=== PATIENT | female | born 1940 | race Caucasian/White ===

== ENCOUNTER 2018-04-08 13:01 | Inpatient (IN) ==
[2018-04-08 17:00] LABS: Baso # (Auto) 0.1 th/mm3 (0.0-0.2); Baso % (Auto) 0.7 % (0.0-2.0); Eos # (Auto) 0.1 th/mm3 (0.0-0.4); Eos % (Auto) 0.7 % (0.0-4.0); Lymph # (Auto) 2.8 th/mm3 (1.0-4.8); Lymph % (Auto) 18.4 % (9.0-44.0); Mean Corpuscular HGB Conc 33.3 % (32.0-36.0); Mean Corpuscular Hemoglobin 32.7 pg (27.0-34.0); Mean Corpuscular Volume 98.1 fL (80.0-100.0); Mean Platelet Volume 8.4 fL (7.0-11.0); Mono # (Auto) 0.9 th/mm3 (0.0-0.9); Mono % (Auto) 5.6 % (0.0-8.0); Neut # (Auto) 11.4 th/mm3 (1.8-7.7); Neut % (Auto) 74.6 % (16.0-70.0); Platelet Count 632 th/mm3 (150-450); Red Blood Count 2.09 mil/mm3 (4.00-5.30); Red Cell Distribution Width 17.2 % (11.6-17.2); White Blood Count 15.3 th/mm3 (4.0-11.0)
[2018-04-08 17:06] LABS: Prothrombin Time 20.7 sec (9.8-11.6)
--- NOTE | 2018-04-08 17:12 | ED ---
HPI General Chief complaint: Weakness Stated complaint: Weakness Time Seen by Provider: 04/08/18 15:55 Source: patient, family and EMS Mode of arrival: EMS Limitations: no limitations History of Present Illness HPI Narrative: 77 year old female with a past medical history of ovarian carcinosarcoma (diagnosed 08/07) and hypertension presents to the ED for evaluation of weakness and urinary symptoms. Patient states that over the last 4 days she has become very easily fatigued to the point where she cannot walk 10 steps without needing to lie down. She also reports that she feels the urge to urinate more frequently than normal and that sometimes when she urinates it is painful. She reports some shortness of breath with exertion. She denies any abdominal pain but reports a dark black stool 3 days ago. She denies fevers , numbness/tingling, nausea or vomiting. She had two debulking surgeries for her ovarian cancer and finished her last round of chemotherapy in January 2018. According to her doctor in [facility] her cancer was stable in January 2018. Related Data Home Medications Medication Instructions Recorded Confirmed carvedilol 6.25 mg PO BID 04/08/18 04/08/18 rivaroxaban [Xarelto] 20 mg PO DAILY 04/08/18 04/08/18 Allergies Allergy/AdvReac Type Severity Reaction Status Date / Time No Known Allergies Allergy Verified 04/08/18 16:02 Review of Systems ROS: all other systems reviewed are negative [facility] Medical History Medical History Ovarian carcinosarcoma (Acute) Surgical History Surgical History H/O abdominal surgery (Acute) Social History Social History Substance History: No History of Abuse Second Hand Smoke Exposure: No Smoking Status: Never smoker How Often Do You Have a Drink Containing Alcohol: Never Recent Travel in [facility] within the Last 8 Weeks: No Recent Out of Country Travel within the Last 8 Weeks: No Immunization History Tetanus Immunization: >5 Years Exam Narrative Exam Narrative: GENERAL: Well-appearing in no distress. SKIN: Focused skin assessment warm/dry. HEAD: Atraumatic. Normocephalic. EYES: Pupils equal and round. No scleral icterus. No injection or drainage. ENT: No nasal bleeding or discharge. Mucous membranes pink and moist. Tongue is midline. No uvuladeviation. NECK: Trachea midline. No JVD. CARDIOVASCULAR: Regular rate and rhythm. No murmur appreciated. RESPIRATORY: No accessory muscle use. Clear to auscultation. Breath sounds equal bilaterally. GASTROINTESTINAL: Abdomen soft, non-tender, nondistended. Hepatic and splenic margins not palpable. MUSCULOSKELETAL: No obvious deformities. No clubbing. No cyanosis. No edema. Full range of motion of the upper and lower extremities bilaterally. 2+ pulses bilaterally. NEUROLOGICAL: Awake and alert. No obvious cranial nerve deficits. Motor grossly within normal limits. Normal speech. PSYCHIATRIC: Appropriate mood and affect; insight and judgment normal. Course Initial Documented Vital Signs Temperature 98.3 F 04/08/18 13:14 Pulse Rate 106 H 04/08/18 13:14 Respiratory Rate 18 04/08/18 13:14 Blood Pressure 116/56 L 04/08/18 13:14 Pulse Oximetry 95 04/08/18 13:14 Last Documented Vital Signs Temperature 98.3 F 04/08/18 13:14 Pulse Rate 105 H 04/08/18 19:45 Respiratory Rate 20 04/08/18 19:45 Blood Pressure 142/70 H 04/08/18 19:45 Pulse Oximetry 100 04/08/18 19:45 Medical Decision Making EMILEE Attestation EMILEE supervised visit: Yes Attestation: I, Dr. Guadalupe, have reviewed the advance practice practitioner's documentation and am in agreement, met with the patient face to face, made the diagnosis, and the medical decision making was done by me. See his note for further details. This is a 77-year-old female from [facility] visiting one of her friends with history of recurrent ovarian cancer, with several surgical resections, last chemotherapy in January 2018, here for evaluation of generalized weakness, dyspnea, dyspnea on exertion. Patient presents tachycardic with an O2 sat of 95 % on room air. No hemoptysis. She has been anemic in the past and last required a transfusion in December 2017. On exam she is awake and alert and is very pleasant. She does not appear to be in any distress. Stool is heme- negative and brown. H&H is 6.8/20.5. Patient was consented for blood transfusion by me and will be given 2 units of PRBCs for symptomatic anemia. CT pulmonary angiogram will also be performed to rule out a PE. Either way the patient will be admitted for further treatment and evaluation of symptomatic anemia MDM Narrative Medical decision making narrative: 77-year-old female that presents to the ED for evaluation of weakness. Patient was properly examined and was found to have signs and symptoms consistent with appears to be weakness. Unclear etiology. Labs and imagings were ordered. Labs and imaging show what appears to be metastatic disease with symptomatic anemia. This time recognitions for admission for blood transfusion and further evaluation. Patient agrees with this plan. Case discussed with my attending agrees with this. Dr. Davis agrees to admission to her service. 2 units of blood were ordered by me. Patient was also found to have UTI and was started on Rocephin. Medical Screen Exam Complete: Yes Emergency Medical Condition: Yes Differential Diagnosis Differential Diagnosis: UTI versus symptomatic anemia versus PE versus chest pain versus a typical chest pain versus dyspnea versus weakness Medical Records Medical records reviewed: Yes I reviewed the patient's medical records. Lab Data Lab results reviewed: Yes I reviewed the patient's lab results. Result diagrams: 04/08/18 16:29 04/08/18 16:29 Lab Results 04/08/18 04/08/18 04/08/18 Range/Units 16:29 16:29 16:29 WBC 15.3 H (4.0-11.0) th/mm3 RBC 2.09 L (4.00-5.30) mil/mm3 Hgb 6.8 L* (11.6-15.3) gm/dL Hct 20.5 L* (35.0-46.0) % MCV 98.1 (80.0-100.0) fL MCH 32.7 (27.0-34.0) pg MCHC 33.3 (32.0-36.0) % RDW 17.2 (11.6-17.2) % Plt Count 632 H (150-450) th/mm3 MPV 8.4 (7.0-11.0) fL Prelim Diff (Auto) [employer] Neut % (Auto) 74.6 H (16.0-70.0) % Lymph % (Auto) 18.4 (9.0-44.0) % Fisher % (Auto) 5.6 (0.0-8.0) % Eos % (Auto) 0.7 (0.0-4.0) % Baso % (Auto) 0.7 (0.0-2.0) % Neut # (Auto) 11.4 H (1.8-7.7) th/mm3 Lymph # (Auto) 2.8 (1.0-4.8) th/mm3 Fisher # (Auto) 0.9 (0.0-0.9) th/mm3 Eos # (Auto) 0.1 (0.0-0.4) th/mm3 Baso # (Auto) 0.1 (0.0-0.2) th/mm3 WBC Differential . Differential Comment Auto diff final PT 20.7 H (9.8-11.6) sec INR 2.0 Ratio Sodium 141 (136-145) meq/L Potassium 4.8 (3.5-5.1) meq/L Chloride 109 H (98-107) meq/L Carbon Dioxide 24.3 (21.0-32.0) meq/L Anion Gap 8 (5-15) meq/L BUN 45 H (7-18) mg/dL Creatinine 1.31 H (0.50-1.00) mg/dL Estimated GFR 39 L (>89) mL/min Random Glucose 115 H (74-106) mg/dL Calcium 8.3 L (8.5-10.1) mg/dL Magnesium 1.7 (1.5-2.5) mg/dL Total Bilirubin 0.2 (0.2-1.0) mg/dL AST 47 H (15-37) U/L ALT 18 (10-53) U/L Alkaline Phosphatase 318 H (45-117) U/L Troponin I Less than 0.02 L (0.02-0.05) ng/mL B-Natriuretic Peptide (0-100) pg/mL Total Protein 7.5 (6.4-8.2) g/dL Albumin 2.8 L (3.4-5.0) g/dL TSH 0.789 (0.358-3.740) uIU/mL Urine Color (Yellw/Straw) Urine Clarity (Clear) Urine pH (5.0-8.5) Ur Specific Welling (1.002-1.035) Urine Protein (Neg-Trace) mg/dL Urine Glucose (UA) (Negative) mg/dL Urine Ketones (Negative) mg/dL Urine Occult Blood (Negative) Urine Nitrate (Negative) Urine Bilirubin (Negative) Urine Urobilinogen (Less than 2) mg/dL Ur Leukocyte Esterase (Negative) Urine RBC (0-3) /hpf Urine WBC (0-5) /hpf Ur Squamous Epith Cells (0-5) /hpf Urine Bacteria (None) /hpf Urine Yeast (None) /hpf Micro UA Comment Ur Microscopic Review Urine Culture Comments Blood Type Blood Type Recheck Antibody Screen MTS Gel Crossmatch 04/08/18 04/08/18 04/08/18 Range/Units 16:29 17:23 17:28 WBC (4.0-11.0) th/mm3 RBC (4.00-5.30) mil/mm3 Hgb (11.6-15.3) gm/dL Hct (35.0-46.0) % MCV (80.0-100.0) fL MCH (27.0-34.0) pg MCHC (32.0-36.0) % RDW (11.6-17.2) % Plt Count (150-450) th/mm3 MPV (7.0-11.0) fL Prelim Diff (Auto) Neut % (Auto) (16.0-70.0) % Lymph % (Auto) (9.0-44.0) % Fisher % (Auto) (0.0-8.0) % Eos % (Auto) (0.0-4.0) % Baso % (Auto) (0.0-2.0) % Neut # (Auto) (1.8-7.7) th/mm3 Lymph # (Auto) (1.0-4.8) th/mm3 Fisher # (Auto) (0.0-0.9) th/mm3 Eos # (Auto) (0.0-0.4) th/mm3 Baso # (Auto) (0.0-0.2) th/mm3 WBC Differential Differential Comment PT (9.8-11.6) sec INR Ratio Sodium (136-145) meq/L Potassium (3.5-5.1) meq/L Chloride (98-107) meq/L Carbon Dioxide (21.0-32.0) meq/L Anion Gap (5-15) meq/L BUN (7-18) mg/dL Creatinine (0.50-1.00) mg/dL Estimated GFR (>89) mL/min Random Glucose (74-106) mg/dL Calcium (8.5-10.1) mg/dL Magnesium (1.5-2.5) mg/dL Total Bilirubin (0.2-1.0) mg/dL AST (15-37) U/L ALT (10-53) U/L Alkaline Phosphatase (45-117) U/L Troponin I (0.02-0.05) ng/mL B-Natriuretic Peptide 20 (0-100) pg/mL Total Protein (6.4-8.2) g/dL Albumin (3.4-5.0) g/dL TSH (0.358-3.740) uIU/mL Urine Color Yellow (Yellw/Straw) Urine Clarity Hazy H (Clear) Urine pH 6.0 (5.0-8.5) Ur Specific Welling 1.016 (1.002-1.035) Urine Protein Negative (Neg-Trace) mg/dL Urine Glucose (UA) Negative (Negative) mg/dL Urine Ketones Negative (Negative) mg/dL Urine Occult Blood Small H (Negative) Urine Nitrate Negative (Negative) Urine Bilirubin Negative (Negative) Urine Urobilinogen Less than 2 (Less than 2) mg/dL Ur Leukocyte Esterase Large H (Negative) Urine RBC 5 H (0-3) /hpf Urine WBC 116 H (0-5) /hpf Ur Squamous Epith Cells 2 (0-5) /hpf Urine Bacteria Moderate H (None) /hpf Urine Yeast Few H (None) /hpf Micro UA Comment Culture indicated Ur Microscopic Review Not Reportable Urine Culture Comments Culture indicated Blood Type A Positive Blood Type Recheck Required Antibody Screen Negative MTS Gel Crossmatch See Detail Imaging Data Attestation: I personally reviewed and interpreted this imaging study as follows : Radiologist's impression: Chest X-Ray 04/08/18 16:19 CONCLUSION: No acute cardiopulmonary disease. Chest CTA 04/08/18 19:08 CONCLUSION: 1. No pulmonary embolus. 2. Multiple hepatic masses likely from metastatic disease. 3. Suspected anterior abdominal wall hernia with bowel seen anterior to the anterior abdominal wall the upper abdomen. ECG Data Attestation: I personally reviewed and interpreted this ECG as follows: Interpretation: EKG shows sinus rhythm with no sign of acute ischemia or arrhythmia read by me and attending. Discharge Plan Discharge Disposition Patient Disposition: ED Admit(ED Internal Use Only) Discharge Details Diagnosis: Symptomatic anemia, Acute UTI, Weakness Physicians Team ED Provider: Levar Guadalupe ED Midlevel Provider: Lorenzo Cruz Primary Care Provider: UNKNOWN, Rxs /Orders / Referrals /Forms Prescriptions: No Action carvedilol 6.25 mg Tablet 6.25 mg PO BID RF: 0 rivaroxaban [Xarelto] 20 mg Tablet 20 mg PO DAILY RF: 0 Status ED Status: Admitted Patient
[2018-04-08 17:13] LABS: Hemoglobin 6.8 gm/dL (11.6-15.3)
[2018-04-08 17:14] LABS: Hematocrit 20.5 % (35.0-46.0)
[2018-04-08 17:22] LABS: Alkaline Phosphatase 318 U/L (45-117); Thyroid Stimulating Hormone 0.789 uIU/mL (0.358-3.740); Total Protein 7.5 g/dL (6.4-8.2)
[2018-04-08 17:25] LABS: Alanine Aminotransferase 18 U/L (10-53); Albumin 2.8 g/dL (3.4-5.0); Anion Gap 8 meq/L (5-15); Blood Urea Nitrogen 45 mg/dL (7-18); Calcium 8.3 mg/dL (8.5-10.1); Carbon Dioxide 24.3 meq/L (21.0-32.0); Chloride 109 meq/L (98-107); Glomerular Filtration Rate 39 mL/min (>89); Glucose,Random 115 mg/dL (74-106); Magnesium 1.7 mg/dL (1.5-2.5); Sodium 141 meq/L (136-145)
--- NOTE | 2018-04-08 17:27 | XR ---
EXAM DATE: 04/08/2018 5:18 PM EST AGE/SEX: 77 years / Female INDICATIONS: Shortness of breath. CLINICAL DATA: This is the patient's initial encounter. Patient reports that signs and symptoms have been present for 1 day and indicates a pain score of 0/10. MEDICAL/SURGICAL HISTORY: None. None. COMPARISON: No prior exams available for comparison. FINDINGS: The lungs are clear without infiltrate, nodule, or mass. There is no appreciable pleural e ffusion for technique. Heart and mediastinum are unremarkable. Right subclavian [id number] is pre sent with tip overlapping the expected region of the SVC. CONCLUSION: No acute cardiopulmonary disease. Electronically signed by: Pacheco Lacy MD Board Certified Radiologist 04/08/2018 5:25 PM EST
[2018-04-08 17:32] LABS: Aspartate Aminotransferase 47 U/L (15-37); Potassium 4.8 meq/L (3.5-5.1)
[2018-04-08] MEDS ORDERED: Sodium Chlor 0.9% Inj 250 ML IV.SIG SCH (18:00)
[2018-04-08 19:26] LABS: Bacteria,Urine Moderate /hpf; Bilirubin,Urine Negative (Negative); Clarity,Urine Hazy (Clear); Color,Urine Yellow (Yellw/Straw); Glucose,Urine (UA) Negative (Negative); Leukocyte Esterase,Urine Large (Negative); Nitrite,Urine Negative (Negative); Specific Gravity,Urine 1.016 (1.002-1.035); Squamous Epithelial Cell,Urine 2 /hpf (0-5)
--- NOTE | 2018-04-08 19:38 | CT ---
EXAM DATE: 04/08/2018 7:32 PM EST AGE/SEX: 77 years / Female INDICATIONS: Short of breath. Weakness. CLINICAL DATA: This is the patient's initial encounter. Patient reports that signs and symptoms have been present for 1 day and indicates a pain score of 0/10. MEDICAL/SURGICAL HISTORY: Carcinoma, ovarian. . Abdominal surgery. RADIATION DOSE: 13.04 CTDI (mGy) COMPARISON: No prior exams available for comparison. TECHNIQUE: Volumetric scanning was performed using a multi-row detector CT scanner during bolus infu dorian of 48 ml Visipaque 320 (iodixanol) nonionic water-soluble contrast as a single exam dose. The d chu was post processed with a variety of visualization algorithms including full volume maximum inten sity projection and sliding thin slab reformation. Using automated exposure control and adjustment of the mA and/or kV according to patient size, radiation dose was kept as low as reasonably achievable to obtain optimal diagnostic quality images. DICOM format image data is available electronically for review and comparison. FINDINGS: Pulmonary Arteries: No filling defects are seen in the pulmonary arteries out to the subsegmental ve ssels. The left and right pulmonary arteries are normal in diameter. Lung: No infiltrates seen. Effusion: None. Mediastinum: No evidence of mediastinal or hilar adenopathy. There is a mild pericardial effusion. Other: The axilla is unremarkable. There appears to be a hernia seen in the upper abdomen with bowel seen anterior to the anterior abdominal wall in the upper abdomen. There are masses seen in the live r. CONCLUSION: 1. No pulmonary embolus. 2. Multiple hepatic masses likely from metastatic disease. 3. Suspected anterior abdominal wall hernia with bowel seen anterior to the anterior abdominal wall the upper abdomen. Electronically signed by: Heron Duncan MD Board Certified Radiologist 04/08/2018 7:37 PM EST
[2018-04-08] MEDS ORDERED: Acetaminophen 325 MG Tablet PO PRN (19:55)
[2018-04-08] MEDS ORDERED: Bisacodyl 10 MG Supp RECTAL PRN (19:55)
--- NOTE | 2018-04-08 19:58 | P.HPIM ---
History of Present Illness Primary Care Physician: UNKNOWN History of Present Illness: This is a 77-year-old [place] female with a PMH of Ovarian CA who presented to the ER w/ c/o weakness/fatigue and dysuria x4 days. Pt visiting friends from [facility], plans to return home in 2wks. States she's been following w/ Oncologists back home, initially diagnosed 07/2015, s/p debulking and chemo w/ recurrence in 07/2016, s/p debulking and chemo again until 01/2018, was found to have stable disease and given clearance to come to the [place] ([place]cologist's note in chart). Now w/ ongoing fatigue and dysuria. Denies fever or chills. On arrival, BP 116/56, HR 106, O2 sat 95% on RA, Afebrile. Hemoglobin 6.8. WBC 15.3. INR 2.0. Creatinine 1.31, no previous labs for comparison. Troponin negative. UA positive for UTI. S/p Rocephin, 2u pRBC ordered in ER, pending transfusion. Hemoccult negative. CXR negative. CTA Chest negative for PE, multiple hepatic masses likely from metastatic disease, anterior abdominal wall hernia. Per pt, liver mets new, however states she had previous "part of liver removed" and was told she had progression "to the right side and deep inside". Diagnosis (1) UTI (urinary tract infection): (2) Ovarian ca: (3) Symptomatic anemia: Review of Systems PAST FAMILY HISTORY: Reviewed. No h/o DM or CAD Review of Systems: all other systems reviewed are negative [facility] Medical History Medical History Ovarian carcinosarcoma (Acute) Surgical History Surgical History H/O abdominal surgery (Acute) Social History Social History Substance History: No History of Abuse Second Hand Smoke Exposure: No Smoking Status: Never smoker How Often Do You Have a Drink Containing Alcohol: Never Recent Travel in [place] within the Last 8 Weeks: No Recent Out of Country Travel within the Last 8 Weeks: No Immunization History Tetanus Immunization: >5 Years Medications and Allergies Allergies Allergy/AdvReac Type Severity Reaction Status Date / Time No Known Allergies Allergy Verified 04/08/18 16:02 Home Medications Medication Instructions Recorded Confirmed Type carvedilol 6.25 mg PO BID 04/08/18 04/08/18 History rivaroxaban [Xarelto] 20 mg PO DAILY 04/08/18 04/08/18 History Active Medications: Active Medications Bisacodyl (Dulcolax Supp) 10 mg RECTAL DAILY PRN PRN Reason: SEVERE CONSITIPATION Sodium Chloride (Ns Inj) 250 mls @ 15 mls/hr IV.SIG ONCE JESSICA Stop: 04/09/18 10:39 Last Admin: 04/08/18 18:29 Dose: 15 mls/hr Ceftriaxone Sodium 1,000 mg/ (Sodium Chloride) 100 mls @ 200 mls/hr IV.SIG ONCE ONE Stop: 04/08/18 20:23 Physical Exam Vital signs: Vital Signs 04/08/18 13:14 04/08/18 16:19 04/08/18 19:45 Temperature 98.3 F Pulse Rate 106 H 103 H 105 H Respiratory Rate 18 20 Blood Pressure 116/56 L 142/70 H Pulse Oximetry 95 97 100 Intake & Output 04/08/18 04/08/18 04/09/18 06:59 18:59 06:59 Weight 58 kg Narrative: PE: GENERAL: Very pleasant middle-aged female in no acute distress. SKIN: Focused skin assessment warm and dry. HEENT: PERRLA, EOMI. No scleral icterus or conjunctival pallor. No lid lag or facial droop. CARDIOVASCULAR: Regular rate and rhythm. No obvious murmurs to auscultation. No chest tenderness to palpation. RESPIRATORY: No obvious rhonchi or wheezing. Clear to auscultation. Breath sounds equal bilaterally. GASTROINTESTINAL: Abdomen soft, non-tender, nondistended. BS normal. MUSCULOSKELETAL: Extremities without clubbing, cyanosis, or edema. No obvious deformities. NEUROLOGICAL: Awake, alert and oriented x4. No focal neurologic deficits. Moving both upper and lower extremities spontaneously. PSYCHIATRIC: Appropriate mood and affect. Insight and judgment normal. Results Labs CBC & Chem 7: 04/08/18 16:29 04/08/18 16:29 Imaging Impressions Chest X-Ray 04/08/18 16:19 CONCLUSION: No acute cardiopulmonary disease. Chest CTA 04/08/18 19:08 CONCLUSION: 1. No pulmonary embolus. 2. Multiple hepatic masses likely from metastatic disease. 3. Suspected anterior abdominal wall hernia with bowel seen anterior to the anterior abdominal wall the upper abdomen. Caprini VTE Risk Assessment Caprini VTE Risk Assessment: No/Low Risk (score <= 1) Caprini Risk Assessment Model: Point Value = 1 Point Value = 2 Point Value = 3 Point Value = 5 Age 41-60 Minor surgery BMI > 25 kg/m2 Swollen legs Varicose veins or History of unexplained or recurrent spontaneous Oral contraceptives or hormone replacement Sepsis (< 1 month) Serious lung disease, including pneumonia (< 1 month) Abnormal pulmonary function Acute myocardial infarction Congestive heart failure (< 1 month) History of inflammatory bowel disease Medical patient at bed rest Age 61-74 Arthroscopic surgery Major open surgery (> 45 min) Laparoscopic surgery (> 45 min) Malignancy Confined to bed (> 72 hours) Immobilizing plaster cast Central venous access Age >= 75 History of VTE Family history of VTE Factor V Leiden Prothrombin [id number] Lupus anticoagulant Anticardiolipin antibodies Elevated serum homocysteine Heparin-induced thrombocytopenia Other congenital or acquired thrombophilia Stroke (< 1 month) Elective arthroplasty Hip, pelvis, or leg fracture Acute spinal cord injury (< 1 month) Prophylaxis Regimen: Total Risk Factor Score Risk Level Prophylaxis Regimen 0-1 Low Early ambulation 2 Moderate Order ONE of the following: *Sequential Compression Device (SCD) *Heparin 5000 units SQ BID 3-4 Higher Order ONE of the following medications: *Heparin 5000 units SQ TID *Enoxaparin/Lovenox 40 mg SQ daily (WT < 150 kg, CrCl > 30 mL/min) *Enoxaparin/Lovenox 30 mg SQ daily (WT < 150 kg, CrCl > 10-29 mL/min) *Enoxaparin/Lovenox 30 mg SQ BID (WT < 150 kg, CrCl > 30 mL/min) AND/OR *Sequential Compression Device (SCD) 5 or more Highest Order ONE of the following medications: *Heparin 5000 units SQ TID (Preferred with Epidurals) *Enoxaparin/Lovenox 40 mg SQ daily (WT < 150 kg, CrCl > 30 mL/min) *Enoxaparin/Lovenox 30 mg SQ daily (WT < 150 kg, CrCl > 10-29 mL/min) *Enoxaparin/Lovenox 30 mg SQ BID (WT < 150 kg, CrCl > 30 mL/min) AND *Sequential Compression Device (SCD) Assessment and Plan (1) UTI (urinary tract infection): Code(s): N39.0 - Urinary tract infection, site not specified Status: Acute (2) Ovarian ca: Code(s): C56.9 - Malignant neoplasm of unspecified ovary Status: Acute (3) Symptomatic anemia: Code(s): D64.9 - Anemia, unspecified Status: Acute Plan A/P: 1. Symptomatic Anemia: c/o fatigue/weakness x4 days, Hgb 6.8, Hemoccult negative. 2u pRBC ordered in ER, pending transfusion. On Xarelto for several years, unclear reason why, possibly due to underlying CA, denies h/o DVT/PE. Will continue Xarelto as hemoccult negative. Repeat Hgb after transfusion. 2. UTI: U/a w/ UTI, s/p Rocephin in ER, will continue w/ IV Abx, IVF for hydration, follow up urine cultures. 3. Ovarian CA: follows w/ Oncologist in [facility] where she lives, plans to re-start Chemo in April when she returns, CTA Chest w/ liver mets, unclear if new or old. 4. DVT Prophylaxis: SCD/Teds 5. Social work for d/c planning as needed 6. Case discussed w/ ER physician at length, labs/records/imaging reviewed by me.
[2018-04-08] MEDS ORDERED: Sod Chloride 0.9% Inj 1,000 ML IV.CONT SCH (20:00)
[2018-04-08] MEDS: Carvedilol 6.25 MG Tablet PO SCH (21:39)
[2018-04-08] MEDS: Senna/Docusate Sodium 8.6/50 MG Tablet PO SCH (21:39)
[2018-04-09 06:09] LABS: Baso # (Auto) 0.1 th/mm3 (0.0-0.2); Baso % (Auto) 0.9 % (0.0-2.0); Eos # (Auto) 0.2 th/mm3 (0.0-0.4); Hematocrit 26.8 % (35.0-46.0); Hemoglobin 9.1 gm/dL (11.6-15.3); Lymph # (Auto) 3.2 th/mm3 (1.0-4.8); Lymph % (Auto) 25.8 % (9.0-44.0); Mean Corpuscular Hemoglobin 30.3 pg (27.0-34.0); Mean Corpuscular Volume 89.1 fL (80.0-100.0); Mean Platelet Volume 8.5 fL (7.0-11.0); Mono % (Auto) 8.4 % (0.0-8.0); Neut # (Auto) 7.7 th/mm3 (1.8-7.7); Neut % (Auto) 62.9 % (16.0-70.0); Platelet Count 479 th/mm3 (150-450); Red Blood Count 3.01 mil/mm3 (4.00-5.30); Red Cell Distribution Width 18.3 % (11.6-17.2); White Blood Count 12.3 th/mm3 (4.0-11.0)
[2018-04-09 07:14] LABS: Alanine Aminotransferase 14 U/L (10-53); Albumin 2.6 g/dL (3.4-5.0); Alkaline Phosphatase 250 U/L (45-117); Anion Gap 8 meq/L (5-15); Aspartate Aminotransferase 29 U/L (15-37); Blood Urea Nitrogen 51 mg/dL (7-18); Carbon Dioxide 24.7 meq/L (21.0-32.0); Chloride 110 meq/L (98-107); Glomerular Filtration Rate 48 mL/min (>89); Glucose,Random 101 mg/dL (74-106); Potassium 3.8 meq/L (3.5-5.1); Sodium 143 meq/L (136-145); Total Protein 6.4 g/dL (6.4-8.2)
[2018-04-09 07:24] LABS: Platelet Morphology Normal (Normal); Polychromasia 2.4 % (0.0-1.9)
[2018-04-09] MEDS: Rivaroxaban 20 MG Tablet PO SCH (09:13)
[2018-04-09] MEDS: Senna/Docusate Sodium 8.6/50 MG Tablet PO SCH ×2 (09:13→21:28)
[2018-04-09] MEDS: Carvedilol 6.25 MG Tablet PO SCH ×2 (09:13→21:28)
--- NOTE | 2018-04-09 14:15 | ECG ---
Date Performed: 04/08/2018 Time Performed: 17:52:23 PTAGE: 77 years EKG: Sinus rhythm LOW QRS VOLTAGE POSSIBLE SEPTAL MYOCARDIAL INFARCTION Incomplete left bundle branch block ABNORMAL E CG NO PREVIOUS TRACING DOCTOR: Shahab Hooker Interpretating Date/Time 04/09/2018 14:15:11
--- NOTE | 2018-04-09 17:02 | P.PNIM ---
Subjective Interval history: No deterioration since last night. Patient self says she feels much better, really wants to go home. She has a number of associates at the bedside who have numerous questions about her condition and are wondering if she has recurrence of metastatic disease. I informed him that I do not have older scans to compare to but there are some findings suggestive of metastatic disease on the CT image per radiologyit is unclear as to what is old and was new. Patient denies having hematochezia or melena. Denies nausea or vomiting, denies belly pain. Hemoglobin this morning was greater than 9. Physical Exam Vital signs: Vital Signs 04/08/18 19:45 04/08/18 20:33 04/08/18 20:37 Temperature 98.7 F Pulse Rate 105 H 103 H 91 H Respiratory Rate 20 16 Blood Pressure 142/70 H 150/65 H Pulse Oximetry 100 99 04/08/18 20:53 04/08/18 21:39 04/08/18 21:58 Temperature 98.3 F 98.4 F 98.3 F Pulse Rate 93 H 93 H 86 Respiratory Rate 17 19 17 Blood Pressure 131/62 132/62 156/67 H Pulse Oximetry 98 98 98 04/08/18 22:15 04/08/18 23:44 04/08/18 23:45 Temperature 98.6 F 98.4 F 98.3 F Pulse Rate 89 89 89 Respiratory Rate 16 16 17 Blood Pressure 145/64 H 137/70 137/70 Pulse Oximetry 100 98 98 04/09/18 00:00 04/09/18 00:24 04/09/18 04:00 Temperature 98.2 F 98.2 F Pulse Rate 94 H 82 74 Respiratory Rate 16 16 Blood Pressure 171/94 H 141/69 H Pulse Oximetry 100 100 04/09/18 04:24 04/09/18 07:00 04/09/18 09:07 Temperature 98.3 F Pulse Rate 65 63 86 Respiratory Rate 18 Blood Pressure 148/74 H Pulse Oximetry 100 04/09/18 11:00 04/09/18 11:20 04/09/18 15:00 Temperature 99 F Pulse Rate 67 71 68 Respiratory Rate 18 Blood Pressure 157/77 H Pulse Oximetry 99 04/09/18 16:15 Temperature 98.7 F Pulse Rate 73 Respiratory Rate 18 Blood Pressure 113/53 L Pulse Oximetry 97 Intake & Output 04/08/18 04/09/18 04/09/18 18:59 06:59 18:59 Intake Total 1140 / 1140 Output Total 100 / 100 Balance 1040 / 1040 Weight 58 kg 56.4 kg Intake: IV 100 / 100 Rocephin Inj 1,000 MG In NS Inj 100 / 100 100 ML @ 200 mls/hr IV.SIG ONCE ONE Rx#:[id number] Oral 240 / 240 Intake (Blood Product) Amt 800 / 800 Rbc As-3 Leukoreduced Unit 400 / 400 [id number] Rbc As-3 Leukoreduced Unit 400 / 400 [id number] Output: Urine 100 / 100 Other: Date of Last Bowel Movement 04/06/18 Narrative: Clear lungs bilaterally, unlabored breathing Heart sounds regular rate and rhythm, Abdomen soft, nontender, nondistended Awake alert, no acute distress, good skin color Results Labs CBC & Chem 7: 04/09/18 05:35 04/09/18 05:35 Labs: Microbiology 04/08/18 17:28 Clean Catch Urine Urine Culture - Preliminary gram negative rods 04/08/18 16:25 Blood - Peripheral Aerobic Blood Culture - Preliminary No growth in 1 day 04/08/18 16:25 Blood - Peripheral Anaerobic Blood Culture - Preliminary No growth in 1 day 04/08/18 16:35 Blood - Peripheral Aerobic Blood Culture - Preliminary No growth in 1 day 04/08/18 16:35 Blood - Peripheral Anaerobic Blood Culture - Preliminary No growth in 1 day 04/08/18 18:36 Nasal Wash Influenza Types A,B Antigen - Final Negative for FLU A and B antigen Infection due to influenza A or B cannot be ruled out since the antigen present in the sample may be below the detection limit of the test. Imaging Imaging: Impressions Chest X-Ray 04/08/18 16:19 CONCLUSION: No acute cardiopulmonary disease. Chest CTA 04/08/18 19:08 CONCLUSION: 1. No pulmonary embolus. 2. Multiple hepatic masses likely from metastatic disease. 3. Suspected anterior abdominal wall hernia with bowel seen anterior to the anterior abdominal wall the upper abdomen. Assessment and Plan (1) UTI (urinary tract infection): Code(s): N39.0 - Urinary tract infection, site not specified Status: Acute (2) Ovarian ca: Code(s): C56.9 - Malignant neoplasm of unspecified ovary Status: Acute (3) Symptomatic anemia: Code(s): D64.9 - Anemia, unspecified Status: Acute Plan 77-year-old white female being admitted for symptomatic anemia requiring transfusion. History of ovarian cancer with [place]ulking chemotherapy in [place]. CT scan showing metastatic disease to the liver but unclear about age since we do not have previous records. Ovarian cancer with possible new/recurring/chronic metastases to the liver We will consult oncology to see there is anything new to do at this time Possible acute anemia Unclear if this is acute or chronic, Hemoccult is negative, stable posttransfusion H&H Recheck in a.m. UTI Gram-negative growing, continue Rocephin Anticipate discharge tomorrow in a.m. if hemoglobin is stable with oral antibiotics upon discharge
--- NOTE | 2018-04-10 02:15 | MB ---
cc: Luly Valenzuela MD DATE: 04/09/2018 REASON FOR CONSULTATION: Consult requested by hospitalist for evaluation of ovarian cancer with multiple liver lesions. HISTORY OF PRESENT ILLNESS: Tawnya is a 77-year-old female. She is visiting [place] from [place]. She is admitted to the hospital for severe weakness. She was found to have severe anemia with hemoglobin of 6.8. She had received 2 units of blood transfusion. Her hemoglobin has improved to 9.1. The patient had a CT angiogram of the chest last evening as she was complaining of shortness of breath. This does not show any evidence of pulmonary embolism. However, incidentally shows multiple hepatic masses, likely from metastatic disease. Also, she has anterior abdominal wall hernia. The patient is admitted to the hospital. I have been asked to see the patient for ovarian cancer with multiple liver lesions. The patient brought a letter from her oncologist. She states that she is from [place]. However, her daughter lives in [facility]. She has been getting treatment at [facility]. 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 She underwent debulking surgery followed by 6 cycles of carboplatin and weekly Taxol chemotherapy. She has elected not to have maintenance therapy with Avastin. In 07/2016, she had first relapse with peritoneal metastasis. She was treated with 6 cycles of carboplatin and Gemzar chemotherapy with a good clinical and radiological response. She underwent second debulking surgery in 02/2017. This was followed by maintenance Avastin, which was continued up until 06/2017. At that point, the Avastin was stopped due to the progressive disease. Subsequently, she was placed on weekly carboplatin and Taxol chemotherapy from 07/2017 through 01/2018. According to the letter and the patient's recollection when she had radiological studies in 01/2018, she was told that her disease was stable. She was advised to have maintenance therapy with niraparib. However, her insurance initially did not approve. The patient wanted to come to [facility] to spend Valery and New Year holidays. The patient is staying with her friend of 17 years who is also from [place]. The patient stated that she was having a good time up until recently. She was having difficult time moving around. She was complaining of extreme weakness and fatigue. This was most likely due to the anemia. The rest of the review of systems is negative. PAST MEDICAL HISTORY: Ovarian carcinosarcoma, hypertension. PAST SURGICAL HISTORY: Debulking surgery for ovarian cancer. ALLERGIES: NONE. MEDICATIONS: Carvedilol and Xarelto. FAMILY HISTORY: Her son from throat cancer. SOCIAL HISTORY: The patient does not smoke cigarettes and does not drink alcohol. PHYSICAL EXAMINATION: GENERAL: Well-developed, well-nourished white female who appears to be younger than her stated age of 77. VITAL SIGNS: Temperature 98, heart rate 66, respiratory rate 18, blood pressure 112/46. HEENT: PERRLA. EOMI, anicteric. No oral lesions noted. NECK: No lymphadenopathy noted. LUNGS: Clear. No wheezing, rhonchi or rales. CARDIOVASCULAR: Regular rate and rhythm. ABDOMEN: Soft, diffusely tender. EXTREMITIES: No pedal edema. NEUROLOGIC: Awake, alert, oriented x3. SKIN: No significant lesions noted. ASSESSMENT: 1. 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 This was diagnosed in 07/2015. Status post multiple courses of chemotherapy and debulking surgery. 2. Multiple liver lesions, most likely consistent with recurrent metastatic ovarian cancer. 3. Severe symptomatic anemia, improved with 2 units of blood transfusion. PLAN: I have reviewed her available records. The patient and her friend's main question is whether the liver lesions are new or not. Since we do not have any previous films available to compare, it is difficult to give that answer. However, the patient's recollection is that she had known history of tumor in the liver, which was removed. In 01/2018, when she had a restaging scan, she was told that there was nothing found in the liver or the liver lesions were stable. The letter which she brought in with her does not state the radiological findings. Regardless, the patient has multiple liver lesions, and she needs to be treated for that. My recommendation is for her that she should go back to [place] as soon as possible. She stated that she has a business class airplane ticket with [employer] in 2 weeks. She will call the airline and will change her ticket so that she can go back home as soon as possible. 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 Her male friend stated that he is going to give her company to [place]. In my opinion, the patient can be discharged to home, and she needs to fly back to [place] as soon as possible to resume chemotherapy. Thank you for asking my opinion. MD RANDY Hernandez/cristy , 01:04 AM , 01:25 AM MTDD
[2018-04-10] MEDS: Senna/Docusate Sodium 8.6/50 MG Tablet PO SCH (09:34)
[2018-04-10] MEDS: Rivaroxaban 20 MG Tablet PO SCH (09:35)
[2018-04-10] MEDS: Carvedilol 6.25 MG Tablet PO SCH (09:35)
[2018-04-10 09:43] LABS: Hematocrit 25.9 % (35.0-46.0); Hemoglobin 8.8 gm/dL (11.6-15.3)
[2018-04-10 09:50] VITALS: RESP 16; TEMP 97.9
--- NOTE | 2018-04-10 10:15 | P.PNIM ---
Subjective Interval history: Nursing denies any deterioration since last night. Patient says she feels okay today. She wants me to talk to her boyfriend about her clinical status. Physical Exam Vital signs: Vital Signs 04/09/18 11:00 04/09/18 11:20 04/09/18 15:00 Temperature 99 F Pulse Rate 67 71 68 Respiratory Rate 18 Blood Pressure 157/77 H Pulse Oximetry 99 04/09/18 16:15 04/09/18 20:00 04/09/18 21:00 Temperature 98.7 F 98.2 F Pulse Rate 73 94 H 80 Respiratory Rate 18 18 Blood Pressure 113/53 L 136/81 Pulse Oximetry 97 100 04/09/18 23:55 04/10/18 00:00 04/10/18 03:49 Temperature 98.0 F 98.0 F Pulse Rate 63 66 65 Respiratory Rate 18 18 Blood Pressure 112/46 L 98/48 L Pulse Oximetry 99 100 04/10/18 03:58 04/10/18 08:00 Temperature 97.9 F Pulse Rate 67 68 Respiratory Rate 16 Blood Pressure 132/70 Pulse Oximetry 100 Intake & Output 04/09/18 04/10/18 04/10/18 18:59 06:59 18:59 Intake Total 720 / 720 340 / 340 Output Total 1025 / 1025 600 / 600 Balance -305 / -305 -260 / -260 Weight 57 kg Intake: IV 100 / 100 Rocephin Inj 1,000 MG In NS Inj 100 / 100 100 ML @ 200 mls/hr IV.SIG Q24H [facility] Rx#:[id number] Oral 720 / 720 240 / 240 Output: Urine 1025 / 1025 600 / 600 Other: Date of Last Bowel Movement 04/06/18 04/09/18 Narrative: Clear lungs bilaterally, unlabored breathing Heart sounds regular rate and rhythm, Abdomen soft, nontender, nondistended Awake alert, no acute distress, good skin color No suprapubic tenderness to palpation 5/5 fist commissary assistant and lower extremity gross strength No facial droop, no slurred speech Results Labs CBC & Chem 7: 04/10/18 08:09 04/09/18 05:35 Labs: Microbiology 04/08/18 17:28 Clean Catch Urine Urine Culture - Final Escherichia coli ESBL positive 04/08/18 16:25 Blood - Peripheral Aerobic Blood Culture - Preliminary No growth in 1 day 04/08/18 16:25 Blood - Peripheral Anaerobic Blood Culture - Preliminary No growth in 1 day 04/08/18 16:35 Blood - Peripheral Aerobic Blood Culture - Preliminary No growth in 1 day 04/08/18 16:35 Blood - Peripheral Anaerobic Blood Culture - Preliminary No growth in 1 day Assessment and Plan (1) UTI (urinary tract infection): Code(s): N39.0 - Urinary tract infection, site not specified Status: Acute (2) Ovarian ca: Code(s): C56.9 - Malignant neoplasm of unspecified ovary Status: Acute (3) Symptomatic anemia: Code(s): D64.9 - Anemia, unspecified Status: Acute Plan 77-year-old white female being admitted for symptomatic anemia requiring transfusion. History of ovarian cancer with [place]ulking chemotherapy [place]. CT scan showing metastatic disease to the liver but unclear about age since we do not have previous records. Ovarian cancer with possible new/recurring/chronic metastases to the liver Appreciate oncology input. Can be discharged from their standpoint so long as the patient follows up closely with her oncologist. Possible acute anemia Unclear if this is acute or chronic, Hemoccult is negative, stable posttransfusion H&H Stable posttransfusion H&H. UTI ESBL positive E. coli, however it is sensitive to Bactrim. If patient tolerates this orally can be discharged on this.
[2018-04-10 12:49] VITALS: BP 122/74; O2SAT 99
[2018-04-10 13:16] VITALS: PULSE 65
== END 2018-04-10 13:00 | disposition home or self-care (01) | DRG 755 ==
LOC: NEPE 13:01 → NEDA 21:33 → HCIN 23:50
PROVIDERS: ADMIT Hospitalist; ATTEND Hospitalist
DX: B96.20 Unspecified Escherichia coli [E. coli] as the cause of diseases classified elsewhere; Z16.12 Extended spectrum beta lactamase (ESBL) resistance; C78.7 Secondary malignant neoplasm of liver and intrahepatic bile duct; I10 Essential (primary) hypertension; Z79.01 Long term (current) use of anticoagulants; D63.0 Anemia in neoplastic disease; K43.9 Ventral hernia without obstruction or gangrene; N39.0 Urinary tract infection, site not specified; C56.9 Malignant neoplasm of unspecified ovary; Z92.21 Personal history of antineoplastic chemotherapy; C78.6 Secondary malignant neoplasm of retroperitoneum and peritoneum
CPT/HCPCS: 36430; 71010; 71045; 71275; 80053; 81001; 83520; 83735; 83880; 84443; 84484; 85014; 85018; 85025; 85610; 86850; 86900; 86901; 86923; 87040; 87077; 87086; 87186; 87275; 87276; 87804; 90760; 93005; 96360; 99285; J0696; J7030; J7050; P9016; P9612; Q9967